=== PATIENT | female | born 1985 | race Caucasian/White ===

== ENCOUNTER 2022-07-28 16:40 | Inpatient (IN) | payer OTHER ==
[2022-07-28] MEDS: ELECTROLYTE-148 SOLN 1,000 ML IV SCH (17:10)
[2022-07-28] MEDS ORDERED: DINOPROSTONE 10 MG VAGINAL SUPPOSITORY VG ONE (18:00)
[2022-07-28 18:17] LABS: BASO % 0.2 % (0-2.0); HEMOGLOBIN 11.4 GM/dL (10.7-15.3); MCH 26.9 pg (25.7-33.7); MCHC 33.7 g/dl (32.0-36.0); MEAN CELL VOLUME 79.9 fl (80-96); MEAN PLT VOLUME 9.8 fl (7.5-11.1); MONO % 5.8 % (3.8-10.2); PLATELET COUNT 174 10^3/uL (134-434); RBC 4.25 M/mm3 (3.60-5.2); RDW 17.1 % (11.6-15.6); WHITE BLOOD COUNT 7.3 K/mm3 (4.0-10.0)
[2022-07-28 18:44] LABS: POTASSIUM 3.7 mmol/L (3.5-5.1)
[2022-07-28 18:45] LABS: CALCIUM 8.6 mg/dL (8.5-10.1); INR 0.92 (0.83-1.09); PROTHROMBIN TIME (PATIENT) 10.7 SEC (9.7-13.0)
[2022-07-28 18:46] LABS: ALBUMIN 2.5 g/dl (3.4-5.0); BLOOD UREA NITROGEN 6.6 mg/dL (7-18)
[2022-07-28 18:49] LABS: CREATININE 0.5 mg/dL (0.55-1.3)
[2022-07-28 18:51] LABS: BILIRUBIN,TOTAL 0.3 mg/dL (0.2-1); TOT PROT 6.3 g/dl (6.4-8.2)
[2022-07-28] MEDS: DEXTROSE 5%-LACTATED RINGERS 1,000 ML IV SCH (19:00)
[2022-07-28 19:04] LABS: HEPATITIS B SURFACE AG MATERN NON-REACTIVE (NONREACTIVE); SYPHILIS W/ RPR CONF NON-REACTIVE (NONREACTIVE)
[2022-07-28 19:33] LABS: HIV INTERPRETATION NEGATIVE (NEGATIVE)
[2022-07-28] MEDS ORDERED: PROMETHAZINE HCL 25 MG/1 ML VIAL IVPB ONE (20:21)
[2022-07-28] MEDS ORDERED: BUTORPHANOL TARTRATE 1 MG/ML VIAL IVPUSH ONE (20:21)
[2022-07-28] MEDS ORDERED: AMPICILLIN - 2 GM in SODIUM CHLORIDE 100 ML IVPB ONE (20:45)
[2022-07-29] MEDS ORDERED: AMPICILLIN SODIUM 2 GM VIAL ONE (06:22)
[2022-07-29] MEDS ORDERED: SODIUM CHLORIDE 100 ML IVPB ONE (06:22)
[2022-07-29 11:14] VITALS: BMI 35.5
[2022-07-29] MEDS: ELECTROLYTE-148 SOLN 1,000 ML IV SCH ×2 (12:00→20:49)
[2022-07-29] MEDS ORDERED: OXYTOCIN 30 UNITS in 0.9% NS 30 UNIT/500 ML INFUS.BAG IVPB SCH (12:00)
[2022-07-29] MEDS ORDERED: PROMETHAZINE HCL 25 MG/1 ML VIAL ONE (16:20)
[2022-07-29] MEDS ORDERED: BUTORPHANOL TARTRATE 1 MG/ML VIAL ONE (16:20)
[2022-07-29 16:47] LABS: METHADONE, UR NEGATIVE (NEGATIVE); PHENCYCLIDINE,URINE NEGATIVE (NEGATIVE)
[2022-07-29 16:48] LABS: COCAINE, UR NEGATIVE (NEGATIVE); OPIATES, URI NEGATIVE (NEGATIVE)
[2022-07-29 16:50] LABS: URINE AMPHETAMINES NEGATIVE (NEGATIVE); URINE BARBITURATES NEGATIVE (NEGATIVE); URINE BENZODIAZEPINES NEGATIVE (NEGATIVE)
[2022-07-29] MEDS ORDERED: OXYTOCIN 30 UNITS in 0.9% NS 30 UNIT/500 ML INFUS.BAG IVPB ONE (17:26)
[2022-07-29] MEDS ORDERED: OXYTOCIN 20 UNITS in 0.9% NS 20 UNIT/1,000 ML INFUS.BAG IV ONE (19:03)
[2022-07-29] MEDS ORDERED: MISOPROSTOL 200 MCG TABLET ONE (19:15)
[2022-07-29] MEDS ORDERED: BENZOCAINE 20% 57 GM BOTTLE TP PRN (19:21)
[2022-07-29] MEDS ORDERED: BISACODYL 10 MG SUPP.RECT RC PRN (19:21)
[2022-07-29] MEDS ORDERED: ACETAMINOPHEN 325 MG TABLET (FP) PO PRN (19:21)
[2022-07-29] MEDS ORDERED: BENZOCAINE 28 GM HEMORRHOIDAL OINTMENT TP PRN (19:21)
[2022-07-29] MEDS ORDERED: WITCH HAZEL 50% (TUCKS) 40 PAD/JAR PAD TP PRN (19:21)
[2022-07-29] MEDS ORDERED: IBUPROFEN 600 MG TABLET (FP) PO PRN (19:21)
[2022-07-29] MEDS ORDERED: MISOPROSTOL 200 MCG TABLET NR ONE (19:23)
[2022-07-29] MEDS ORDERED: OXYTOCIN 20 UNITS in 0.9% NS 20 UNIT/1,000 ML INFUS.BAG IV SCH (19:30)
[2022-07-29] MEDS: AMPICILLIN - 1 GM in SODIUM CHLORIDE 100 ML IVPB SCH ×2 (20:50→20:51)
[2022-07-29] MEDS: DEXTROSE 5%-LACTATED RINGERS 1,000 ML IV SCH (20:51)
[2022-07-30 00:33] VITALS: RESP 18
[2022-07-30 07:41] LABS: BASO % 0.3 % (0-2.0); EOS % 0.4 % (0-4.5); HEMATOCRIT 32.4 % (32.4-45.2); HEMOGLOBIN 11.2 GM/dL (10.7-15.3); LYMPH % 19.7 % (8-40); MCH 27.6 pg (25.7-33.7); MCHC 34.5 g/dl (32.0-36.0); MEAN CELL VOLUME 79.9 fl (80-96); NEUT % 74.6 % (42.8-82.8); PLATELET COUNT 161 10^3/uL (134-434); RBC 4.06 M/mm3 (3.60-5.2); RDW 17.4 % (11.6-15.6); WHITE BLOOD COUNT 9.4 K/mm3 (4.0-10.0)
[2022-07-30] MEDS ORDERED: SENNOSIDES/DOCUSATE COMBO (SENNA PLUS) TABLET (UD) PO PRN (22:00)
[2022-07-31 08:20] VITALS: BP 100/59; PULSE 61; TEMP 98
== END 2022-07-31 11:37 | disposition home or self-care (01) | DRG 560 ==
LOC: JLDR 16:40 → EDBD 16:40 → J3W 07-29 21:07
PROVIDERS: ADMIT Obstetrics & Gynecology; ATTEND Obstetrics & Gynecology
PROC: 10E0XZZ Delivery of Products of Conception, External Approach (ICD-10-PCS; principal; 2022-07-29)
DX: O41.03X0 Oligohydramnios, third trimester, not applicable or unspecified (principal); Z3A.37 37 weeks gestation of pregnancy; Z37.0 Single live birth
CPT/HCPCS: 36415; 80053; 80307; 85025; 85610; 85730; 86780; 86850; 86900; 86901; 87340; 87389; C9803-CS; U0003; U0005

== ENCOUNTER 2022-09-25 05:14 | Day surgery (SDC) | payer OTHER ==
[2022-09-21 12:10] VITALS: BMI 30.2
[~2022-09-25 05:14] MED LIST: BUPIVACAINE HCL/PF 0.25% (2.5MG/ML) 10 ML VIAL IJ ONE
[2022-09-25] MEDS ORDERED: BUPIVACAINE HCL/PF 0.25% (2.5MG/ML) 10 ML VIAL ONE (07:43)
[2022-09-25] MEDS ORDERED: ROCURONIUM BROMIDE 50 MG/5 ML SYRINGE ONE (08:00)
[2022-09-25] MEDS ORDERED: PROPOFOL 20 ML ONE (08:00)
[2022-09-25] MEDS ORDERED: BUPIVACAINE HCL/PF 0.25% (2.5MG/ML) 10 ML VIAL IJ ONE (09:03)
[2022-09-25] MEDS ORDERED: KETOROLAC TROMETHAMINE 30 MG/1 ML VIAL ONE (09:04)
[2022-09-25] MEDS ORDERED: ONDANSETRON 4 MG/2 ML VIAL ONE (09:04)
[2022-09-25] MEDS ORDERED: DEXAMETHASONE SOD PHOSPHATE 4 MG/1 ML VIAL ONE (09:04)
[2022-09-25] MEDS ORDERED: NEOSTIGMINE METHYLSULFATE 0.5 MG/1 ML - 10 ML MDV ONE (09:04)
[2022-09-25] MEDS ORDERED: GLYCOPYRROLATE 0.2 MG/1 ML VIAL ONE ×2 (09:04)
[2022-09-25] MEDS ORDERED: NALOXONE HCL 0.4 MG/ML VIAL ONE (09:23)
[2022-09-25] MEDS ORDERED: ONDANSETRON 4 MG/2 ML VIAL IVPUSH PRN (09:33)
[2022-09-25] MEDS ORDERED: oxyCODONE HCL 5 MG TABLET PO PRN (09:33)
[2022-09-25] MEDS ORDERED: LACTATED RINGERS SOLUTION 1,000 ML IV SCH (09:45)
[2022-09-25] MEDS ORDERED: ACETAMINOPHEN 1000 MG/100 ML BAG IVPB ONE (11:24)
[2022-09-25 13:11] VITALS: RESP 20; TEMP 98
[2022-09-25 14:30] VITALS: BP 112/63; PULSE 65
== END 2022-09-25 14:12 | disposition home or self-care (01) ==
LOC: JASU-SURG 05:14
PROVIDERS: ATTEND Obstetrics & Gynecology
PROC: 0UB74ZZ Excision of Bilateral Fallopian Tubes, Percutaneous Endoscopic Approach (ICD-10-PCS; principal; 2022-09-25 08:00)
DX: Z30.2 Encounter for sterilization (principal)
CPT/HCPCS: 81025; 88302-TC; 94760